=== PATIENT | female | born 1940 | race Caucasian/White ===

== ENCOUNTER 2021-09-19 15:10 | Inpatient (IN) | payer OTHER ==
[2021-09-19 17:47] LABS: VENOUS BASE EXCESS 1.2 mmol/L (-2-2); VENOUS O2 SATURATION 32.2 % (70-80); VENOUS PCO2 46.9 mmHg (38-52); VENOUS PH 7.379 (7.310-7.410)
[2021-09-19 18:01] LABS: INR 1.29 (0.83-1.09); PROTHROMBIN TIME (PATIENT) 14.9 SEC (9.7-13.0)
[2021-09-19 18:04] LABS: ACTIVATED PTT 29.5 SECONDS (25.2-36.5); HEMATOCRIT 38.2 % (32.4-45.2); HEMOGLOBIN 13.4 G/dL (10.7-15.3); MEAN CELL VOLUME 96.9 fl (80-96); MEAN PLT VOLUME 9.8 fl (7.5-11.1); PLATELET COUNT 230.3 10^3/uL (134-434); RBC 3.94 10^6/uL (3.60-5.2); RDW 13.9 % (11.6-15.6); WHITE BLOOD COUNT 12.8 10^3/uL (4.0-10.8)
[2021-09-19 18:09] LABS: BILIRUBIN,TOTAL 1.4 mg/dl (0.2-1); CREATININE 0.7 mg/dl (0.55-1.3); TOT PROT 6.7 g/dl (6.4-8.2)
[2021-09-19 18:27] LABS: PLATELET ESTIMATE ADEQUATE
[2021-09-19] MEDS ORDERED: CEFTRIAXONE 1,000 MG in DEXTROSE 5%-WATER - 50 ML IVPB ONE (19:10)
[2021-09-19] MEDS ORDERED: cefTRIAXone SODIUM 1 GM VIAL ONE (19:14)
[2021-09-19 19:22] LABS: EPITHELIAL CELLS FEW /hpf
[2021-09-19] MEDS ORDERED: ACETAMINOPHEN 500 MG TABLET (FP) PO PRN (21:00)
[2021-09-19] MEDS ORDERED: SODIUM CHLORIDE 0.45% 1,000 ML IV SCH (21:15)
[2021-09-19 23:03] VITALS: BMI 26.3
[2021-09-19] MEDS: CARVEDILOL 6.25 MG TABLET (FP) GT SCH (23:05)
[2021-09-19] MEDS: ATORVASTATIN CA 40 MG TABLET (FP) GT SCH (23:05)
[2021-09-19] MEDS: ACETAMINOPHEN 500 MG TABLET (FP) GT PRN (23:15)
[2021-09-20] MEDS ORDERED: LEVOTHYROXINE NA 75 MCG TABLET (FP) GT SCH (07:00)
[2021-09-20] MEDS ORDERED: ASPIRIN 325 MG TABLET PO STA (09:07)
[2021-09-20] MEDS ORDERED: cefTRIAXone SODIUM 1 GM VIAL ONE (09:16)
[2021-09-20] MEDS ORDERED: DEXTROSE 5%-WATER - 50 ML IVPB ONE (09:16)
[2021-09-20] MEDS: POTASSIUM CHLORIDE ORAL LIQUID 20 MEQ/15 ML GT SCH (09:31)
[2021-09-20] MEDS: CEFTRIAXONE 1 GM in DEXTROSE 5%-WATER - 50 ML IVPB SCH (09:31)
[2021-09-20] MEDS: LISINOPRIL 5 MG TABLET GT SCH (09:33)
[2021-09-20] MEDS: CARVEDILOL 6.25 MG TABLET (FP) GT SCH ×2 (09:34→22:35)
[2021-09-20] MEDS ORDERED: FUROSEMIDE 20 MG TABLET (FP) GT SCH (10:00)
[2021-09-20] MEDS: LEVOTHYROXINE NA 100 MCG TABLET (FP) PO SCH (12:25)
[2021-09-20] MEDS: ACETAMINOPHEN 500 MG TABLET (FP) GT PRN (22:32)
[2021-09-20] MEDS: ATORVASTATIN CA 40 MG TABLET (FP) GT SCH (22:33)
[2021-09-21] MEDS ORDERED: DEXTROSE 5%-WATER - 50 ML IVPB ONE (09:09)
[2021-09-21] MEDS ORDERED: cefTRIAXone SODIUM 1 GM VIAL ONE (09:09)
[2021-09-21] MEDS: CEFTRIAXONE 1 GM in DEXTROSE 5%-WATER - 50 ML IVPB SCH (09:26)
[2021-09-21] MEDS: LEVOTHYROXINE NA 100 MCG TABLET (FP) PO SCH (09:30)
[2021-09-21] MEDS: FUROSEMIDE 20 MG TABLET (FP) PO SCH (09:30)
[2021-09-21] MEDS: ASPIRIN 81 MG CHEWABLE TABLETS PO SCH (09:30)
[2021-09-21] MEDS: LISINOPRIL 5 MG TABLET GT SCH (09:31)
[2021-09-21] MEDS: CARVEDILOL 6.25 MG TABLET (FP) GT SCH (09:33)
[2021-09-21] MEDS: POTASSIUM CHLORIDE ORAL LIQUID 20 MEQ/15 ML GT SCH (09:33)
[2021-09-21 09:57] LABS: ALBUMIN 2.5 g/dl (3.4-5.0); BILIRUBIN,TOTAL 0.6 mg/dl (0.2-1); CALCIUM 8.6 mg/dl (8.5-10); CREATININE 0.5 mg/dl (0.55-1.3); TOT PROT 6.2 g/dl (6.4-8.2)
[2021-09-21] MEDS ORDERED: ASPIRIN 325 MG TABLET PO SCH (10:00)
[2021-09-21] MEDS: ACETAMINOPHEN 500 MG TABLET (FP) PO SCH ×3 (13:13→23:52)
[2021-09-21] MEDS: CARVEDILOL 6.25 MG TABLET (FP) PO SCH (21:36)
[2021-09-21] MEDS: ATORVASTATIN CA 40 MG TABLET (FP) PO SCH (21:36)
[2021-09-22] MEDS: ACETAMINOPHEN 500 MG TABLET (FP) PO SCH ×3 (06:18→18:09)
[2021-09-22] MEDS ORDERED: cefTRIAXone SODIUM 1 GM VIAL ONE (09:09)
[2021-09-22] MEDS ORDERED: DEXTROSE 5%-WATER - 50 ML IVPB ONE (09:09)
[2021-09-22 09:13] LABS: HEMATOCRIT 36.1 % (32.4-45.2); HEMOGLOBIN 12.2 G/dL (10.7-15.3); MCH 32.7 pg (25.7-33.7); MCHC 33.7 g/dl (32.0-36.0); MEAN CELL VOLUME 96.7 fl (80-96); MEAN PLT VOLUME 9.3 fl (7.5-11.1); PLATELET COUNT 262.4 10^3/uL (134-434); RBC 3.73 10^6/uL (3.60-5.2); RDW 14.8 % (11.6-15.6); WHITE BLOOD COUNT 8.2 10^3/uL (4.0-10.8)
[2021-09-22] MEDS: CEFTRIAXONE 1 GM in DEXTROSE 5%-WATER - 50 ML IVPB SCH (09:16)
[2021-09-22] MEDS: FUROSEMIDE 20 MG TABLET (FP) PO SCH (09:17)
[2021-09-22] MEDS: ASPIRIN 81 MG CHEWABLE TABLETS PO SCH (09:17)
[2021-09-22] MEDS: CARVEDILOL 6.25 MG TABLET (FP) PO SCH ×2 (09:17→21:11)
[2021-09-22] MEDS: POTASSIUM CHLORIDE ORAL LIQUID 20 MEQ/15 ML PO SCH (09:17)
[2021-09-22] MEDS: LISINOPRIL 5 MG TABLET PO SCH (09:17)
[2021-09-22] MEDS: LEVOTHYROXINE NA 100 MCG TABLET (FP) PO SCH (09:28)
[2021-09-22 09:29] LABS: ALBUMIN 2.4 g/dl (3.4-5.0); BILIRUBIN,TOTAL 0.5 mg/dl (0.2-1); CALCIUM 8.5 mg/dl (8.5-10); CREATININE 0.5 mg/dl (0.55-1.3); TOT PROT 5.6 g/dl (6.4-8.2)
[2021-09-22] MEDS: ATORVASTATIN CA 40 MG TABLET (FP) PO SCH (21:10)
[2021-09-23] MEDS: ACETAMINOPHEN 500 MG TABLET (FP) PO SCH ×3 (00:07→12:46)
[2021-09-23] MEDS ORDERED: cefTRIAXone SODIUM 1 GM VIAL ONE (09:17)
[2021-09-23] MEDS ORDERED: DEXTROSE 5%-WATER - 50 ML IVPB ONE (09:18)
[2021-09-23] MEDS: FUROSEMIDE 20 MG TABLET (FP) PO SCH (09:21)
[2021-09-23] MEDS: ASPIRIN 81 MG CHEWABLE TABLETS PO SCH (09:21)
[2021-09-23] MEDS: CARVEDILOL 6.25 MG TABLET (FP) PO SCH (09:21)
[2021-09-23] MEDS: LISINOPRIL 5 MG TABLET PO SCH (09:21)
[2021-09-23] MEDS: LEVOTHYROXINE NA 100 MCG TABLET (FP) PO SCH (09:21)
[2021-09-23] MEDS: CEFTRIAXONE 1 GM in DEXTROSE 5%-WATER - 50 ML IVPB SCH (09:21)
[2021-09-23] MEDS: POTASSIUM CHLORIDE ORAL LIQUID 20 MEQ/15 ML PO SCH (09:22)
[2021-09-23 14:12] VITALS: BP 151/52; PULSE 69; TEMP 98.2
== END 2021-09-23 15:37 | disposition home or self-care (01) | DRG 690 ==
LOC: SUPCPDRO 15:10 → FER 15:10 → FM/S 19:17
PROVIDERS: ADMIT Internal Medicine; ATTEND Internal Medicine
DX: N39.0 Urinary tract infection, site not specified (principal); I24.8 Other forms of acute ischemic heart disease; E03.9 Hypothyroidism, unspecified; F03.90 Unspecified dementia, unspecified severity, without behavioral disturbance, psychotic disturbance, mood disturbance, and anxiety; E78.2 Mixed hyperlipidemia; I25.10 Atherosclerotic heart disease of native coronary artery without angina pectoris; Z95.1 Presence of aortocoronary bypass graft; I11.9 Hypertensive heart disease without heart failure
CPT/HCPCS: 0241U-QW; 36415; 70450-TC; 71045-TC-FY; 72125-TC; 72170-TC-FY; 73560-TC-RT-FY; 73610-TC-RT-FY; 73630-TC-RT-FY; 73700-TC-RT; 80053; 80061; 81003; 81015; 82550; 82553; 82803; 83036; 83605; 84443; 84484; 85025; 85027; 85610; 85730; 86850; 86900; 86901; 87040; 87077; 87086; 93005; 97116-GP; 97161-GP; 99285-25

== ENCOUNTER 2022-08-28 10:38 | Emergency (ER) | payer OTHER ==
[2022-08-28 10:46] VITALS: BP 128/58; PULSE 76; RESP 18; TEMP 97.8; BMI 23.4
[2022-08-28] MEDS ORDERED: CEPHALEXIN MONOHYDRATE 500 MG CAPSULE (UD) PO ONE (11:09)
[2022-08-28] MEDS ORDERED: CEPHALEXIN MONOHYDRATE 500 MG CAPSULE (UD) ONE (11:12)
== END 2022-08-28 11:50 | disposition home or self-care (01) ==
LOC: FER 10:38
DX: L08.89 Other specified local infections of the skin and subcutaneous tissue (principal)
CPT/HCPCS: 99283-25

== ENCOUNTER 2022-09-15 13:41 | Emergency (ER) | payer OTHER ==
[2022-09-15 14:11] VITALS: BP 97/51; PULSE 80; RESP 20; TEMP 98.8; BMI 32.3
== END 2022-09-15 16:44 | disposition home or self-care (01) ==
LOC: FER 13:41
DX: R22.42 Localized swelling, mass and lump, left lower limb (principal)
CPT/HCPCS: 93971-TC; 99284-25

== ENCOUNTER 2023-12-15 15:04 | Inpatient (IN) | payer OTHER, MEDICARE ==
[2023-12-15] MEDS ORDERED: ACETAMINOPHEN INJECTION 100 ML IVPB ONE (16:25)
[2023-12-15] MEDS: ACETAMINOPHEN 1000 MG/100 ML BAG IVPB ONE (16:30)
[2023-12-15] MEDS: SODIUM CHLORIDE 500 ML IV STA ×2 (16:30→22:20)
[2023-12-15 17:11] LABS: VENOUS O2 SATURATION 53.2 % (70-80); VENOUS PCO2 31.5 mmHg (38-52); VENOUS PH 7.295 (7.310-7.410)
[2023-12-15 17:20] LABS: BASO % 0.5 % (0-2.0); HEMATOCRIT 47.8 % (32.4-45.2); HEMOGLOBIN 15.4 GM/dL (10.7-15.3); LYMPH % 9.2 % (8-40); MCH 30.6 pg (25.7-33.7); MCHC 32.2 g/dl (32.0-36.0); MEAN PLT VOLUME 11.4 fl (7.5-11.1); NEUT % 87.3 % (42.8-82.8); PLATELET COUNT 179 10^3/uL (134-434); RBC 5.03 M/mm3 (3.60-5.2); RDW 16.6 % (11.6-15.6); WHITE BLOOD COUNT 12.7 K/mm3 (4.0-10.0)
[2023-12-15 17:25] LABS: EPI CELLS 3 /uL (0-25.1); HYALINE CASTS 1 /uL (0-3.1); PH,URINE 5.5 (5.0-8.0); URINE APPEARANCE CLOUDY; URINE BACTERIA 3128 /uL (0-1359); URINE BILIRUBIN NEGATIVE (NEGATIVE); URINE COLOR YELLOW; URINE GLUCOSE (UA) NEGATIVE (NEGATIVE); URINE KETONE NEGATIVE (NEGATIVE); URINE LEUK ESTERASE 3+ (NEGATIVE); URINE NITRITE NEGATIVE (NEGATIVE); URINE PROTEIN 1+ (NEGATIVE); URINE UROBILINOGEN 0.2 mg/dL (0.2-1.0); URINE WBC 458 /uL (0-25.8)
[2023-12-15 17:40] LABS: LACTIC ACID 2.9 mmol/L (0.4-2.0)
[2023-12-15 17:41] LABS: POTASSIUM 4.3 mmol/L (3.5-5.1)
[2023-12-15 17:43] LABS: BLOOD UREA NITROGEN 85.1 mg/dL (7-18); CALCIUM 8.2 mg/dL (8.5-10.1); MAGNESIUM 1.9 mg/dL (1.8-2.4)
[2023-12-15 17:46] LABS: CREATININE 3.1 mg/dL (0.55-1.3)
[2023-12-15 17:49] LABS: BILIRUBIN,TOTAL 0.7 mg/dL (0.2-1); TOT PROT 5.8 g/dl (6.4-8.2)
[2023-12-15] MEDS ORDERED: CEFTRIAXONE 1 GM/50 ML BAG ONE (19:32)
[2023-12-15] MEDS: CEFTRIAXONE 1,000 MG in DEXTROSE 5%-WATER - 50 ML IVPB ONE (19:35)
[2023-12-16 04:24] VITALS: BMI 26.1
[2023-12-16] MEDS: SODIUM CHLORIDE 0.45% 1,000 ML IV SCH ×2 (05:10→16:45)
[2023-12-16] MEDS: REMDESIVIR 200 MG in SODIUM CHLORIDE 250 ML IVPB ONE (05:34)
[2023-12-16] MEDS ORDERED: ACETAMINOPHEN 1000 MG/100 ML BAG IVPB PRN (10:46)
[2023-12-16] MEDS: LIDOCAINE 4% PATCH TP SCH (10:47)
[2023-12-16 13:23] LABS: INR 1.27 (0.83-1.09); PROTHROMBIN TIME (PATIENT) 14.3 SEC (9.7-13.0)
[2023-12-16 13:24] LABS: HEMATOCRIT 51.1 % (32.4-45.2); HEMOGLOBIN 16.2 GM/dL (10.7-15.3); MCH 30.4 pg (25.7-33.7); MCHC 31.6 g/dl (32.0-36.0); MEAN PLT VOLUME 11.3 fl (7.5-11.1); RBC 5.32 M/mm3 (3.60-5.2); RDW 17.3 % (11.6-15.6)
[2023-12-16 13:26] LABS: ACTIVATED PTT 29.7 SECONDS (25.2-36.5)
[2023-12-16 13:34] LABS: POTASSIUM 4.3 mmol/L (3.5-5.1)
[2023-12-16 13:40] LABS: BLOOD UREA NITROGEN 87.7 mg/dL (7-18); CALCIUM 8.8 mg/dL (8.5-10.1); LACTIC ACID 2.5 mmol/L (0.4-2.0)
[2023-12-16 13:44] LABS: CREATININE 2.5 mg/dL (0.55-1.3)
[2023-12-16 15:21] LABS: ANISOCYTOSIS 1+; MACROCYTOSIS 0; TOXIC GRANULATION 2+
[2023-12-16 15:39] LABS: PLATELET COUNT 179 10^3/uL (134-434)
[2023-12-16 16:23] LABS: LACTIC ACID 2.1 mmol/L (0.4-2.0)
[2023-12-16] MEDS: valACYclovir HCL 500 MG TABLET (FP) PO ONE (16:38)
[2023-12-16] MEDS: MAG HYDROX/ALH/SMC/DPHA/LIDO 240 ML MOUTHWASH MM SCH (17:27)
[2023-12-16] MEDS: WATER IVPB ONE (20:00)
[2023-12-16] MEDS: DEXTROSE 5% IVPB ONE (20:00)
[2023-12-16] MEDS: ACYCLOVIR IVPB ONE (20:00)
[2023-12-16 20:28] LABS: ALBUMIN 2.4 g/dl (3.4-5.0)
[2023-12-16 20:31] LABS: BILIRUBIN,DIRECT 0.3 mg/dL (0.0-0.2)
[2023-12-16 20:33] LABS: BILIRUBIN,TOTAL 0.5 mg/dL (0.2-1); TOT PROT 6.3 g/dl (6.4-8.2)
[2023-12-16] MEDS: CEFTRIAXONE 1 GM in DEXTROSE 5%-WATER - 50 ML IVPB SCH (20:54)
[2023-12-16] MEDS: LIDOCAINE PATCH REMOVAL MC SCH (22:00)
[2023-12-17 06:59] LABS: HEMATOCRIT 48.9 % (32.4-45.2); HEMOGLOBIN 16.1 GM/dL (10.7-15.3); MCH 30.6 pg (25.7-33.7); MCHC 32.8 g/dl (32.0-36.0); MEAN CELL VOLUME 93.3 fl (80-96); MEAN PLT VOLUME 11.7 fl (7.5-11.1); PLATELET COUNT 136 10^3/uL (134-434); RBC 5.24 M/mm3 (3.60-5.2); RDW 16.1 % (11.6-15.6); WHITE BLOOD COUNT 7.4 K/mm3 (4.0-10.0)
[2023-12-17 07:13] LABS: POTASSIUM 4.4 mmol/L (3.5-5.1)
[2023-12-17 07:17] LABS: CALCIUM 8.6 mg/dL (8.5-10.1)
[2023-12-17 07:21] LABS: CREATININE 2.4 mg/dL (0.55-1.3)
[2023-12-17 07:22] LABS: BILIRUBIN,TOTAL 0.7 mg/dL (0.2-1); TOT PROT 5.5 g/dl (6.4-8.2)
[2023-12-17] MEDS ORDERED: REMDESIVIR 100 MG in SODIUM CHLORIDE 250 ML IVPB SCH (10:00)
[2023-12-17] MEDS: SODIUM BICARBONATE 650 MG TABLET PO SCH (10:55)
[2023-12-17] MEDS: ENOXAPARIN NA (PORCINE) 30 MG/0.3 ML DISP.SYRIN SQ SCH (11:11)
[2023-12-17] MEDS: SODIUM BICARBONATE 8.4% - 50 MEQ in DEXTROSE 5%-WATER - 1,000 ML IV SCH (11:16)
[2023-12-17] MEDS: ALBUTEROL SO4 2.5/IPRATROPIUM 0.5 INH SOL 3 ML VIAL.NEB. NEB PRN (13:54)
[2023-12-17] MEDS: VANCOMYCIN/WATER FOR INJ (PEG) 1,000 MG/200 ML BAG IVPB ONE (14:07)
[2023-12-17] MEDS: DEXTROSE 5%-0.45% SALINE 1,000 ML IV SCH (16:10)
[2023-12-17] MEDS: ACYCLOVIR IVPB SCH (18:01)
[2023-12-17] MEDS: DEXTROSE 5% IVPB SCH (18:01)
[2023-12-17] MEDS: WATER IVPB SCH (18:01)
[2023-12-17] MEDS ORDERED: WATER IVPB SCH (19:00)
[2023-12-17] MEDS ORDERED: ACYCLOVIR IVPB SCH (19:00)
[2023-12-17] MEDS ORDERED: DEXTROSE 5% IVPB SCH (19:00)
[2023-12-18 07:43] LABS: HEMATOCRIT 48.4 % (32.4-45.2); HEMOGLOBIN 15.4 GM/dL (10.7-15.3); MCH 30.4 pg (25.7-33.7); MCHC 31.8 g/dl (32.0-36.0); MEAN CELL VOLUME 95.7 fl (80-96); PLATELET COUNT 111 10^3/uL (134-434); RBC 5.06 M/mm3 (3.60-5.2); RDW 16.3 % (11.6-15.6)
[2023-12-18 08:10] LABS: POTASSIUM 3.9 mmol/L (3.5-5.1)
[2023-12-18 08:22] LABS: CALCIUM 8.5 mg/dL (8.5-10.1)
[2023-12-18 08:23] LABS: BLOOD UREA NITROGEN 96.3 mg/dL (7-18)
[2023-12-18 08:26] LABS: BILIRUBIN,TOTAL 0.7 mg/dL (0.2-1); TOT PROT 5.3 g/dl (6.4-8.2)
[2023-12-18 09:16] LABS: ANISOCYTOSIS 0; MACROCYTOSIS 0
[2023-12-18] MEDS: DEXAMETHASONE SOD PHOSPHATE 10 MG/1 ML VIAL IVPUSH SCH (12:28)
[2023-12-18] MEDS: VANCOMYCIN 500 MG in DEXTROSE 5%-WATER 100 ML IVPB ONE (14:31)
[2023-12-18] MEDS: CEFEPIME HCL 1 GM VIAL (RESTRICTED TO ID) IVPB SCH (14:41)
[2023-12-18] MEDS: CEFEPIME 1 GM in DEXTROSE 5%-WATER 100 ML IVPB SCH (14:44)
[2023-12-19 09:53] LABS: POTASSIUM 3.5 mmol/L (3.5-5.1)
[2023-12-19 10:06] LABS: PLATELET COUNT 92 10^3/uL (134-434)
[2023-12-19 10:10] LABS: HEMATOCRIT 45.5 % (32.4-45.2); MCH 30.4 pg (25.7-33.7); MEAN PLT VOLUME 12.2 fl (7.5-11.1); RBC 4.95 M/mm3 (3.60-5.2); RDW 16.5 % (11.6-15.6); WHITE BLOOD COUNT 5.3 K/mm3 (4.0-10.0)
[2023-12-19 10:13] LABS: BLOOD UREA NITROGEN 75.2 mg/dL (7-18)
[2023-12-19 10:14] LABS: CALCIUM 8.6 mg/dL (8.5-10.1)
[2023-12-19 10:17] LABS: CREATININE 1.4 mg/dL (0.55-1.3)
[2023-12-19 10:18] LABS: TOT PROT 5.3 g/dl (6.4-8.2)
[2023-12-19 10:57] LABS: ANISOCYTOSIS 0; MACROCYTOSIS 0
[2023-12-19] MEDS: VANCOMYCIN 500 MG in DEXTROSE 5%-WATER - 100 ML IVPB ONE (13:51)
[2023-12-19] MEDS: AMINO ACIDS 4.25%/D5W 1,000 ML IV SCH (13:52)
[2023-12-19] MEDS: ACETAMINOPHEN 1000 MG/100 ML BAG IVPB ONE (20:20)
[2023-12-19] MEDS: FAT EMULSION/OLIVE/SOY/PHOSPHO 250 ML IV SCH (21:47)
[2023-12-19] MEDS ORDERED: FAT EMULSIONS 250 ML IV SCH (22:00)
[2023-12-19] MEDS ORDERED: FAT EMULSIONS 20% 250 ML PREMIX INFUS.BAG IV SCH (22:00)
[2023-12-20 08:25] LABS: POTASSIUM 3.1 mmol/L (3.5-5.1)
[2023-12-20 08:27] LABS: HEMATOCRIT 45.3 % (32.4-45.2); MCH 30.6 pg (25.7-33.7); MCHC 33.2 g/dl (32.0-36.0); MEAN CELL VOLUME 92.1 fl (80-96); MEAN PLT VOLUME 12.9 fl (7.5-11.1); PLATELET COUNT 86 10^3/uL (134-434); RBC 4.91 M/mm3 (3.60-5.2); RDW 16.8 % (11.6-15.6); WHITE BLOOD COUNT 7.4 K/mm3 (4.0-10.0)
[2023-12-20 08:36] LABS: CHOLESTEROL 80 mg/dL (50-200)
[2023-12-20 08:38] LABS: CALCIUM 8.3 mg/dL (8.5-10.1); LDL CHOLESTEROL (ONLY SJRH) 40 mg/dL (5-100)
[2023-12-20 08:39] LABS: ALBUMIN 1.7 g/dl (3.4-5.0); HDL CHOLESTEROL 15 mg/dL (40-60)
[2023-12-20 08:42] LABS: CREATININE 1.1 mg/dL (0.55-1.3)
[2023-12-20 08:43] LABS: BILIRUBIN,TOTAL 1.2 mg/dL (0.2-1); TOT PROT 5.1 g/dl (6.4-8.2)
[2023-12-20 09:49] LABS: ANISOCYTOSIS 0; MACROCYTOSIS 0
[2023-12-20 10:01] LABS: PLATELET ESTIMATE DECREASED
[2023-12-20] MEDS: KCL 10 MEQ IVPB 10 MEQ/100 ML INFUS.BAG IVPB SCH (11:26)
[2023-12-20] MEDS: POTASSIUM CHLORIDE 20 MEQ in AMINO ACIDS 4.25%/D5W 1,000 ML IV SCH (13:52)
[2023-12-20] MEDS: ACETAMINOPHEN 1000 MG/100 ML BAG IVPB PRN (16:48)
[2023-12-20] MEDS: WATER IVPB SCH (17:11)
[2023-12-20] MEDS: ACYCLOVIR IVPB SCH (17:11)
[2023-12-20] MEDS: DEXTROSE 5% IVPB SCH (17:11)
[2023-12-21 07:57] LABS: HEMATOCRIT 43.2 % (32.4-45.2); HEMOGLOBIN 14.2 GM/dL (10.7-15.3); MCH 30.6 pg (25.7-33.7); MCHC 32.8 g/dl (32.0-36.0); MEAN CELL VOLUME 93.3 fl (80-96); MEAN PLT VOLUME 12.7 fl (7.5-11.1); PLATELET COUNT 81 10^3/uL (134-434); RBC 4.63 M/mm3 (3.60-5.2); RDW 16.3 % (11.6-15.6); WHITE BLOOD COUNT 9.2 K/mm3 (4.0-10.0)
[2023-12-21 08:09] LABS: POTASSIUM 4.5 mmol/L (3.5-5.1)
[2023-12-21 08:12] LABS: CALCIUM 8.2 mg/dL (8.5-10.1)
[2023-12-21 08:13] LABS: ALBUMIN 1.7 g/dl (3.4-5.0); BLOOD UREA NITROGEN 78.8 mg/dL (7-18); MAGNESIUM 1.8 mg/dL (1.8-2.4)
[2023-12-21 08:18] LABS: BILIRUBIN,TOTAL 0.8 mg/dL (0.2-1)
[2023-12-21 09:56] LABS: ANISOCYTOSIS 0; HELMET CELLS 0; HOWELL-JOLLY BODIES 0; MACROCYTOSIS 0; OVALOCYTE 0; ROULEAU 0; SICKELED CELLS 0; TARGET CELLS 0; TEAR DROP CELLS 0; TOXIC GRANULATION 0
[2023-12-21 10:11] LABS: ERYTHROCYTE SEDIMENTATION RATE 39 mm/hr (0-30)
[2023-12-21] MEDS: DEXTROSE 5%-WATER - 1,000 ML IV SCH (17:55)
[2023-12-22 07:51] LABS: HEMATOCRIT 44.4 % (32.4-45.2); HEMOGLOBIN 14.4 GM/dL (10.7-15.3); MCH 30.3 pg (25.7-33.7); MCHC 32.5 g/dl (32.0-36.0); MEAN CELL VOLUME 93.3 fl (80-96); MEAN PLT VOLUME 13.1 fl (7.5-11.1); PLATELET COUNT 90 10^3/uL (134-434); RBC 4.76 M/mm3 (3.60-5.2); RDW 16.5 % (11.6-15.6)
[2023-12-22 08:14] LABS: POTASSIUM 4.7 mmol/L (3.5-5.1)
[2023-12-22 08:20] LABS: ALBUMIN 1.8 g/dl (3.4-5.0); BLOOD UREA NITROGEN 80.2 mg/dL (7-18)
[2023-12-22 08:23] LABS: TOT PROT 5.2 g/dl (6.4-8.2)
[2023-12-22 09:30] LABS: ANISOCYTOSIS 0; MACROCYTOSIS 0
[2023-12-22 09:43] LABS: PLATELET ESTIMATE DECREASED
[2023-12-23 08:52] LABS: POTASSIUM 5.2 mmol/L (3.5-5.1)
[2023-12-23 08:56] LABS: ALBUMIN 1.9 g/dl (3.4-5.0); BLOOD UREA NITROGEN 80.2 mg/dL (7-18); CALCIUM 8.1 mg/dL (8.5-10.1)
[2023-12-23 09:01] LABS: BILIRUBIN,TOTAL 1.3 mg/dL (0.2-1); TOT PROT 5.5 g/dl (6.4-8.2)
[2023-12-23] MEDS ORDERED: SODIUM BICARBONATE 8.4% 50 MEQ/50 ML VIAL IVPUSH ONE (09:49)
[2023-12-23] MEDS ORDERED: SODIUM ZIRCONIUM CYCLOSILICATE (LOKELMA) 5 GM PACKET PO SCH (10:00)
[2023-12-23] MEDS ORDERED: SODIUM BICARBONATE 8.4% - 50 MEQ in DEXTROSE 5%-WATER - 100 ML IVPB ONE (11:30)
[2023-12-23] MEDS: ACETAMINOPHEN 1000 MG/100 ML BAG IVPB PRN (11:38)
[2023-12-23] MEDS: AMINO ACIDS 4.25%/D5W 1,000 ML IV SCH (12:15)
[2023-12-23] MEDS: SODIUM BICARBONATE 8.4% - 50 MEQ in DEXTROSE 5%-WATER - 50 ML IVPB ONE (12:35)
[2023-12-23] MEDS: SODIUM BICARBONATE 650 MG TABLET PO SCH (13:56)
[2023-12-24 06:14] VITALS: BP 135/91; PULSE 110; RESP 18; TEMP 98.4
== END 2023-12-24 09:45 | disposition expired | DRG 871 ==
LOC: JER 15:04 → JERBED 18:04 → J4S 12-16 02:48
PROVIDERS: ADMIT Internal Medicine; ATTEND Internal Medicine
PROC: XW033E5 Introduction of Remdesivir Anti-infective into Peripheral Vein, Percutaneous Approach, New Technology Group 5 (ICD-10-PCS; principal; 2023-12-16)
PROC: 3E0333Z Introduction of Anti-inflammatory into Peripheral Vein, Percutaneous Approach (ICD-10-PCS; 2023-12-18)
DX: A41.89 Other specified sepsis (principal); J96.01 Acute respiratory failure with hypoxia; U07.1 COVID-19; R53.2 Functional quadriplegia; N39.0 Urinary tract infection, site not specified; I24.89 Other forms of acute ischemic heart disease; I47.29 Other ventricular tachycardia; E87.0 Hyperosmolality and hypernatremia; I25.10 Atherosclerotic heart disease of native coronary artery without angina pectoris; E78.5 Hyperlipidemia, unspecified; K59.00 Constipation, unspecified; E03.9 Hypothyroidism, unspecified; R77.8 Other specified abnormalities of plasma proteins; I25.2 Old myocardial infarction; I45.10 Unspecified right bundle-branch block; K12.30 Oral mucositis (ulcerative), unspecified; F03.90 Unspecified dementia, unspecified severity, without behavioral disturbance, psychotic disturbance, mood disturbance, and anxiety; B95.2 Enterococcus as the cause of diseases classified elsewhere; Z95.1 Presence of aortocoronary bypass graft; Z88.0 Allergy status to penicillin
CPT/HCPCS: 0241U-QW; 36415; 71045-TC-FY; 76700-TC; 80048; 80053; 80061; 80076; 81003; 82550; 82553; 82728; 82803; 82962; 83605; 83615; 83735; 84439; 84443; 84484; 85025; 85027; 85610; 85651; 85730; 86140; 87040; 87086; 87186; 87529; 93005; 93010; 93306-TC; 94640; 99291; G0480; J0131; J0248; J1100